=== PATIENT | female | born 1940 | race Caucasian/White ===

== ENCOUNTER 2018-11-09 21:37 | Inpatient (IN) | payer MEDICARE, OTHER, MEDICAID ==
[2018-11-09] MEDS: ALBUTEROL 0.5% (NEB) 2.5 MG/0.5 ML AMP INH (21:48)
[2018-11-09] MEDS: FUROSEMIDE 40 MG INJ IV (21:48)
[2018-11-09] MEDS: IPRATROPIUM (NEB) 0.5 MG/2.5 ML AMP INH (21:48)
[2018-11-09] MEDS: NITROGLYCERIN 50 MG/D5W (PMX) 250 ML IV (21:49)
[2018-11-09 21:56] LABS: ADD MAN DIFF? NO
[2018-11-09 21:59] LABS: ABNORMAL IP MESSAGE 1; BASOPHILS % 0.2 % (0.0-2.0); HEMATOCRIT 36.6 % (37.0-47.0); HEMOGLOBIN 11.9 g/dl (12.0-16.0); LYMPHOCYTES # 2.9 10^3/ul (0.8-2.9); LYMPHOCYTES % 14.7 % (15.0-51.0); MEAN CORPUSCULAR HEMOGLOBIN 29.9 pg (29.0-33.0); MEAN CORPUSCULAR HGB CONC 32.5 g/dl (32.0-37.0); MEAN PLATELET VOLUME 10.5 fl (7.4-10.4); MONOCYTE # 1.8 10^3/ul (0.3-0.9); NEUTROPHIL # 14.7 10^3/ul (1.6-7.5); NEUTROPHILS % 74.6 % (39.0-77.0); PLATELET COUNT 240 10^3/UL (140-415); RED BLOOD COUNT 3.98 10^6/ul (4.20-5.40)
[2018-11-09 21:59] LABS: WHITE BLOOD COUNT 19.8 10^3/ul (4.8-10.8)
[2018-11-09] MEDS ORDERED: AMIODARONE 900 MG in DEXTROSE 5% 482 ML IV (22:00)
[2018-11-09 22:02] LABS: POSITIVE DIFF @See below
[2018-11-09 22:04] LABS: ALANINE AMINOTRANSFERASE 123 IU/L (13-69); ALBUMIN 4.1 g/dl (3.3-4.9); ALKALINE PHOSPHATASE 112 IU/L (42-121); ANION GAP 14 (5-13); ASPARTATE AMINO TRANSFERASE 67 IU/L (15-46); BILIRUBIN,INDIRECT 0.8 mg/dl (0-1.1); BILIRUBIN,TOTAL 0.8 mg/dl (0.2-1.3); BLOOD UREA NITROGEN 23 mg/dl (7-20); CALCIUM 8.9 mg/dl (8.4-10.2); CARBON DIOXIDE 18 mmol/L (21-31); CHLORIDE 102 mmol/L (97-110); GLUCOSE 331 mg/dl (70-220); POTASSIUM 4.4 mmol/L (3.5-5.1); SODIUM 134 mmol/L (135-144); TOTAL PROTEIN 7.5 g/dl (6.1-8.1)
[2018-11-09 22:16] LABS: B-TYPE NATRIURETIC PEPTIDE 4760 PG/ML (0-450); TROPONIN-I < 0.012 ng/ml (0.000-0.120)
[2018-11-09] MEDS: CEFTRIAXONE 1 GM/50 ML (PMX) 50 ML IVPB (22:16)
[2018-11-09 22:22] LABS: PARTIAL THROMBOPLASTIN TIME 25.9 Sec (23.0-35.0); PROTIME 14.3 Sec (11.9-14.9); PT RATIO 1.1
[2018-11-09] MEDS ORDERED: ONDANSETRON 4 MG INJ IV (22:30)
[2018-11-09] MEDS ORDERED: ACETAMINOPHEN 325 MG TAB PO (22:30)
[2018-11-09 22:33] LABS: ADD UMIC YES; UR ASCORBIC ACID NEGATIVE (NEGATIVE); UR BACTERIA FEW /HPF (NONE SEEN); UR BILIRUBIN (Dip) NEGATIVE (NEGATIVE); UR BLOOD (Dip) 1+ mg/dL (NEGATIVE); UR CLARITY SLIGHTLY CLOUDY (CLEAR); UR COLOR YELLOW (YELLOW); UR GLUCOSE (Dip) 3+ mg/dL (NEGATIVE); UR HYALINE CAST FEW /HPF (NONE SEEN); UR KETONES (Dip) NEGATIVE (NEGATIVE); UR LEUKOCYTE ESTERASE (Dip) NEGATIVE Leu/ul (NEGATIVE); UR MUCUS FEW /HPF (NONE SEEN); UR NITRITE (Dip) NEGATIVE (NEGATIVE); UR RBC 1 /HPF (0-5); UR SPECIFIC GRAVITY (Dip) 1.018 (1.003-1.030); UR SQUAMOUS EPITHELIAL CELL FEW /HPF (FEW); UR TOTAL PROTEIN (Dip) 2+ mg/dl (NEGATIVE); UR UROBILINOGEN (Dip) NEGATIVE (NEGATIVE); UR WBC 2 /HPF (0-5)
[2018-11-09] MEDS: AMIODARONE 150MG/D5W BOLUS IV* (22:37)
[2018-11-09 23:08] LABS: Blood Gas IEPAP 15/5; Blood Gas PS 10; MODE MASK - BIPAP; MetHgb Venous 0.5 %; Sample Type Blood venous; Site VENOUS LINE; Venous COHb 0.4 %; Venous Fraction OxyHgb 83.4 %; Venous Oxygen Sat 84.2 mmHG (55.0-75.0); Venous Total Hemglobin 12.6 g/dl
[2018-11-09] MEDS: INSULIN REGULAR, HUMAN 100 UNIT/1 ML 3ML VIAL IV (23:19)
[2018-11-09] MEDS: AZITHROMYCIN 500MG/NS (PMX) 250 ML IV (23:19)
[2018-11-09] MEDS ORDERED: SOD CHLORIDE 0.45% 1,000 ML IV (23:50)
[2018-11-10] MEDS ORDERED: NITROGLYCERIN AEROSOL (4.9 GM) SL
[2018-11-10] MEDS ORDERED: PIPER-TAZO 3.375 GM IV (PMX) 100 ML IVPB
[2018-11-10 00:07] LABS: LACTIC ACID 2.8 mmol/L (0.5-2.0)
[2018-11-10] MEDS ORDERED: VANCOMYCIN IV PER PHARMACY XX (00:30)
[2018-11-10 00:39] LABS: DIGOXIN < 0.4 ng/ml (1.0-2.0)
[2018-11-10 00:48] LABS: TROPONIN-I < 0.012 ng/ml (0.000-0.120)
[2018-11-10 00:50] LABS: IRON 34 ug/dl (35-150)
[2018-11-10 00:51] LABS: MAGNESIUM 1.5 mg/dl (1.7-2.5)
[2018-11-10 01:00] LABS: % IRON SATURATION 14 % SAT (22-52); TOTAL IRON BINDING CAPACITY 236 ug/dl (241-421)
[2018-11-10] MEDS ORDERED: NITROGLYCERIN (SL) 0.4 MG TAB SL (01:00)
[2018-11-10] MEDS: PIPER-TAZO 3.375 GM IV (PMX) 100 ML IVPB (01:47)
[2018-11-10 01:57] LABS: ANION GAP 9 (5-13); BLOOD UREA NITROGEN 23 mg/dl (7-20); CALCIUM 8.4 mg/dl (8.4-10.2); CARBON DIOXIDE 24 mmol/L (21-31); CHLORIDE 100 mmol/L (97-110); CREATININE 0.96 mg/dl (0.44-1.00); GLUCOSE 250 mg/dl (70-220); POTASSIUM 3.6 mmol/L (3.5-5.1); SODIUM 133 mmol/L (135-144)
[2018-11-10 02:00] LABS: LACTIC ACID 2.1 mmol/L (0.5-2.0)
[2018-11-10 04:23] LABS: AADO2 Arterial 620.3 mmHg (7.0-24.0); Allen Test ACCEPTAB; Arterial Base Excess -4.8 mmol/L (-3.0-3); Arterial Blood Gas Oxygen Sat 92.1 mmHG (95.0-100.0); Arterial COHb 0.3 % (0.0-3.0); Arterial Fraction of Oxyhgb 91.5 % (93.0-99.0); Arterial HCO3 18.8 mmol/L (22.0-26.0); Arterial MetHb 0.4 % (0.0-1.5); Arterial pCO2 30.3 mmhg (35-45); MODE MASK - NRB; Site Right Radial
[2018-11-10] MEDS: VANCOMYCIN 1.5 GM/NS 250 ML 250 ML IVPB (04:49)
[2018-11-10] MEDS: PIPER-TAZO 2.25 GM/NS 50 ML IVPB ×3 (07:47→21:21)
[2018-11-10] MEDS: ALBUTEROL/IPRATROPIUM (NEB) 3 ML AMP HHN ×3 (08:12→20:11)
[2018-11-10] MEDS: POTASSIUM CHLORIDE 100 ML IVPB ×2 (08:20→10:04)
[2018-11-10] MEDS: FUROSEMIDE 40 MG INJ IV ×2 (08:21→17:40)
[2018-11-10] MEDS: MAGNESIUM SULFATE 4 GM/100 ML 100 ML IVPB (08:32)
[2018-11-10] MEDS ORDERED: DIGOXIN 0.25 MG TAB PO ×2 (09:00)
[2018-11-10] MEDS ORDERED: LISINOPRIL 10 MG TAB PO (09:00)
[2018-11-10] MEDS: DIPHENHYDRAMINE 50 MG CAP PO ×5 (09:00→21:26)
[2018-11-10] MEDS ORDERED: AMIODARONE 900 MG in DEXTROSE 5% 482 ML IV (09:00)
[2018-11-10] MEDS ORDERED: VANCOMYCIN 1 GM (PMX) 250 ML IVPB (09:00)
[2018-11-10] MEDS ORDERED: MAGNESIUM SULFATE 2 GM/50 ML 50 ML IVPB (09:00)
[2018-11-10] MEDS ORDERED: ASPIRIN (EC) 325 MG TAB PO (09:00)
[2018-11-10] MEDS: LISINOPRIL 20 MG TAB PO (10:04)
[2018-11-10] MEDS: ASPIRIN (EC) 325 MG TAB PO (10:04)
[2018-11-10] MEDS: METOPROLOL 100 MG TAB PO (10:04)
[2018-11-10 11:25] LABS: PROCALCITONIN 1.56 ng/mL (0.00-0.10)
[2018-11-10] MEDS: SOD FERRIC GLUC COMPLX 125 MG in SOD CHLORIDE 0.9% 100 ML IVPB (13:45)
[2018-11-10] MEDS: AMIODARONE 200 ML IV ×2 (13:54→19:24)
[2018-11-10] MEDS: POTASSIUM CHLORIDE (SR) 8 MEQ CAP PO (15:08)
[2018-11-10] MEDS ORDERED: INSULIN LISPRO 100 UNIT/ML VIAL SC (21:00)
[2018-11-10] MEDS: ATORVASTATIN 20 MG TAB PO (21:26)
[2018-11-10] MEDS: INSULIN ASPART [NOVOLOG] 3 ML PEN SC (21:38)
[2018-11-11] MEDS: AMIODARONE 200 ML IV ×5 (04:51→21:22)
[2018-11-11] MEDS: VANCOMYCIN 1 GM 250 ML IVPB (04:53)
[2018-11-11 05:47] LABS: ADD MAN DIFF? NO
[2018-11-11 05:49] LABS: WHITE BLOOD COUNT 12.6 10^3/ul (4.8-10.8)
[2018-11-11 05:49] LABS: BASOPHILS % 0.1 % (0.0-2.0); HEMATOCRIT 29.8 % (37.0-47.0); LYMPHOCYTES # 0.8 10^3/ul (0.8-2.9); LYMPHOCYTES % 6.6 % (15.0-51.0); MEAN CORPUSCULAR HGB CONC 33.6 g/dl (32.0-37.0); MEAN CORPUSCULAR VOLUME 89.5 fl (82.0-101.0); MEAN PLATELET VOLUME 10.2 fl (7.4-10.4); MONOCYTE # 1.3 10^3/ul (0.3-0.9); MONOCYTES % 10.1 % (0.0-11.0); NEUTROPHIL # 10.4 10^3/ul (1.6-7.5); NEUTROPHILS % 82.3 % (39.0-77.0); PLATELET COUNT 151 10^3/UL (140-415); RED BLOOD COUNT 3.33 10^6/ul (4.20-5.40); RED CELL DISTRIBUTION WIDTH 14.3 % (11.5-14.5)
[2018-11-11] MEDS: DILTIAZEM 25 MG INJ IV ×2 (05:53→06:01)
[2018-11-11] MEDS ORDERED: DILTIAZEM 25 MG INJ IV ×2 (06:00)
[2018-11-11] MEDS: PIPER-TAZO 2.25 GM/NS 50 ML IVPB ×3 (06:02→22:42)
[2018-11-11 06:53] LABS: ALANINE AMINOTRANSFERASE 75 IU/L (13-69); ALBUMIN 3.3 g/dl (3.3-4.9); ALKALINE PHOSPHATASE 90 IU/L (42-121); ANION GAP 7 (5-13); ASPARTATE AMINO TRANSFERASE 28 IU/L (15-46); BILIRUBIN,INDIRECT 0.8 mg/dl (0-1.1); BILIRUBIN,TOTAL 0.8 mg/dl (0.2-1.3); BLOOD UREA NITROGEN 19 mg/dl (7-20); CALCIUM 8.4 mg/dl (8.4-10.2); CARBON DIOXIDE 28 mmol/L (21-31); CHLORIDE 102 mmol/L (97-110); CREATININE 0.86 mg/dl (0.44-1.00); GLUCOSE 266 mg/dl (70-220); MAGNESIUM 2.2 mg/dl (1.7-2.5); POTASSIUM 3.2 mmol/L (3.5-5.1); SODIUM 137 mmol/L (135-144); TOTAL PROTEIN 6.6 g/dl (6.1-8.1)
[2018-11-11] MEDS: FUROSEMIDE 40 MG INJ IV ×3 (07:00→17:34)
[2018-11-11] MEDS ORDERED: DEXTROSE 50% 50 ML SYRINGE IV ×2 (08:30)
[2018-11-11] MEDS ORDERED: GLUCOSE GEL 15 GRAM TUBE BUCCAL (08:30)
[2018-11-11] MEDS ORDERED: GLUCAGON 1 MG INJ IM (08:30)
[2018-11-11] MEDS ORDERED: GLUCOSE GEL 15 GRAM TUBE PO ×2 (08:30)
[2018-11-11] MEDS: HEPARIN (10 UNITS/ML) 5ML SYG IV (09:00)
[2018-11-11] MEDS ORDERED: POTASSIUM CHLORIDE (SR) 20 MEQ TAB PO (09:00)
[2018-11-11 09:03] LABS: Allen Test ACCEPTAB; Arterial Base Excess 0.3 mmol/L (-3.0-3); Arterial Blood Gas Oxygen Sat 93.5 mmHG (95.0-100.0); Arterial COHb 0.3 % (0.0-3.0); Arterial Fraction of Oxyhgb 92.9 % (93.0-99.0); Arterial HCO3 23.3 mmol/L (22.0-26.0); Arterial MetHb 0.3 % (0.0-1.5); Arterial pCO2 32.2 mmhg (35-45); Blood Gas IEPAP 15/5; Blood Gas PS 10; MODE MASK - BIPAP; Site Right Radial
[2018-11-11] MEDS: ASPIRIN (EC) 325 MG TAB PO (09:06)
[2018-11-11] MEDS: DIPHENHYDRAMINE 50 MG CAP PO ×4 (09:06→20:59)
[2018-11-11] MEDS: METOPROLOL 100 MG TAB PO (09:07)
[2018-11-11] MEDS: ALBUTEROL/IPRATROPIUM (NEB) 3 ML AMP HHN ×3 (09:34→21:40)
[2018-11-11] MEDS ORDERED: INSULIN ASPART [NOVOLOG] 3 ML PEN SC (11:30)
[2018-11-11] MEDS: POTASSIUM CHLORIDE 50 ML IVPB ×2 (11:52→13:13)
[2018-11-11] MEDS: SOD FERRIC GLUC COMPLX 125 MG in SOD CHLORIDE 0.9% 100 ML IVPB (12:22)
[2018-11-11] MEDS: INSULIN ASPART [NOVOLOG] 3 ML PEN SC ×3 (13:11→21:16)
[2018-11-11] MEDS: ACETAMINOPHEN 1000MG/100ML IV 100 ML IVPB (20:11)
[2018-11-11] MEDS: METOPROLOL 5 MG INJ IV (20:11)
[2018-11-11] MEDS: POTASSIUM CHLORIDE 100 ML IVPB (20:59)
[2018-11-11] MEDS: ATORVASTATIN 20 MG TAB PO (20:59)
[2018-11-11] MEDS ORDERED: DIGOXIN 0.25 MG TAB PO (21:00)
[2018-11-11] MEDS: INSULIN GLARGINE [LANTus] (100 UNITS/ML) SYG SC (21:16)
[2018-11-11] MEDS ORDERED: DIGOXIN 500 MCG INJ IV (22:00)
[2018-11-11] MEDS: DIGOXIN 500 MCG INJ IV (22:11)
[2018-11-12] MEDS: INSULIN ASPART [NOVOLOG] 3 ML PEN SC ×6 (00:47→20:42)
[2018-11-12] MEDS: AMIODARONE 200 ML IV ×3 (03:20→13:07)
[2018-11-12] MEDS: DIGOXIN 500 MCG INJ IV ×2 (03:44→09:55)
[2018-11-12] MEDS ORDERED: DIGOXIN 500 MCG INJ IV (04:00)
[2018-11-12] MEDS: VANCOMYCIN 1 GM 250 ML IVPB (04:29)
[2018-11-12 04:34] LABS: ADD MAN DIFF? NO
[2018-11-12 04:37] LABS: WHITE BLOOD COUNT 11.5 10^3/ul (4.8-10.8)
[2018-11-12 04:37] LABS: BASOPHILS % 0.1 % (0.0-2.0); HEMATOCRIT 30.4 % (37.0-47.0); HEMOGLOBIN 9.7 g/dl (12.0-16.0); LYMPHOCYTES # 0.8 10^3/ul (0.8-2.9); LYMPHOCYTES % 7.2 % (15.0-51.0); MEAN CORPUSCULAR HEMOGLOBIN 29.4 pg (29.0-33.0); MEAN CORPUSCULAR HGB CONC 31.9 g/dl (32.0-37.0); MEAN CORPUSCULAR VOLUME 92.1 fl (82.0-101.0); MEAN PLATELET VOLUME 10.7 fl (7.4-10.4); MONOCYTE # 0.9 10^3/ul (0.3-0.9); MONOCYTES % 8.1 % (0.0-11.0); NEUTROPHIL # 9.7 10^3/ul (1.6-7.5); NEUTROPHILS % 84.1 % (39.0-77.0); PLATELET COUNT 151 10^3/UL (140-415); RED CELL DISTRIBUTION WIDTH 14.4 % (11.5-14.5)
[2018-11-12 04:59] LABS: ALANINE AMINOTRANSFERASE 57 IU/L (13-69); ALBUMIN 3.4 g/dl (3.3-4.9); ALBUMIN/GLOBULIN RATIO 1.06; ALKALINE PHOSPHATASE 79 IU/L (42-121); ANION GAP 6 (5-13); ASPARTATE AMINO TRANSFERASE 24 IU/L (15-46); BILIRUBIN,INDIRECT 0.8 mg/dl (0-1.1); BILIRUBIN,TOTAL 0.8 mg/dl (0.2-1.3); BLOOD UREA NITROGEN 18 mg/dl (7-20); CALCIUM 8.5 mg/dl (8.4-10.2); CARBON DIOXIDE 32 mmol/L (21-31); CHLORIDE 102 mmol/L (97-110); CREATININE 0.69 mg/dl (0.44-1.00); GLUCOSE 193 mg/dl (70-220); MAGNESIUM 2.2 mg/dl (1.7-2.5); PHOSPHORUS 2.2 mg/dl (2.5-4.9); POTASSIUM 3.2 mmol/L (3.5-5.1); SODIUM 140 mmol/L (135-144); TOTAL PROTEIN 6.6 g/dl (6.1-8.1)
[2018-11-12] MEDS: FUROSEMIDE 40 MG INJ IV ×2 (05:31→17:36)
[2018-11-12] MEDS: PIPER-TAZO 2.25 GM/NS 50 ML IVPB ×3 (06:44→21:37)
[2018-11-12] MEDS: POTASSIUM CHLORIDE 100 ML IVPB ×4 (07:55→18:39)
[2018-11-12] MEDS: ALBUTEROL/IPRATROPIUM (NEB) 3 ML AMP HHN ×3 (08:06→21:30)
[2018-11-12] MEDS: ASPIRIN (EC) 325 MG TAB PO (08:33)
[2018-11-12] MEDS: DIPHENHYDRAMINE 50 MG CAP PO ×4 (08:33→20:32)
[2018-11-12] MEDS: METOPROLOL 100 MG TAB PO (08:37)
[2018-11-12] MEDS ORDERED: POTASSIUM CHLORIDE 100 ML IVPB (09:30)
[2018-11-12] MEDS: SOD FERRIC GLUC COMPLX 125 MG in SOD CHLORIDE 0.9% 100 ML IVPB (13:05)
[2018-11-12 15:54] LABS: ANION GAP 7 (5-13); BLOOD UREA NITROGEN 15 mg/dl (7-20); CALCIUM 8.6 mg/dl (8.4-10.2); CARBON DIOXIDE 32 mmol/L (21-31); CHLORIDE 101 mmol/L (97-110); CREATININE 0.73 mg/dl (0.44-1.00); GLUCOSE 176 mg/dl (70-220); POTASSIUM 3.6 mmol/L (3.5-5.1); SODIUM 140 mmol/L (135-144)
[2018-11-12] MEDS: ACETAMINOPHEN 650 MG SUPP PR (15:59)
[2018-11-12] MEDS: VANCOMYCIN 1 GM (PMX) 250 ML IVPB (16:20)
[2018-11-12] MEDS: AMIODARONE 900 MG in DEXTROSE 5% 482 ML IV (17:46)
[2018-11-12] MEDS: METOPROLOL 50 MG TAB PO ×2 (18:43→23:42)
[2018-11-12] MEDS: ATORVASTATIN 20 MG TAB PO (20:32)
[2018-11-12] MEDS: POTASSIUM PHOSPHATE 10 MEQ in SOD CHLORIDE 0.9% 250 ML IVPB (20:32)
[2018-11-12] MEDS: INSULIN GLARGINE [LANTus] (100 UNITS/ML) SYG SC (20:42)
[2018-11-13] MEDS ORDERED: ONDANSETRON 4 MG INJ IV
[2018-11-13] MEDS: ACETAMINOPHEN 650 MG SUPP PR
[2018-11-13] MEDS: GUAIFENESIN/CODEINE 5ML CUP PO
[2018-11-13] MEDS: INSULIN ASPART [NOVOLOG] 3 ML PEN SC ×6 (00:51→20:03)
[2018-11-13] MEDS: ONDANSETRON IV (01:39)
[2018-11-13] MEDS: SOD CHLORIDE 0.9% IV (01:39)
[2018-11-13 05:15] LABS: ADD MAN DIFF? NO
[2018-11-13 05:18] LABS: WHITE BLOOD COUNT 10.8 10^3/ul (4.8-10.8)
[2018-11-13 05:18] LABS: BASOPHILS % 0.1 % (0.0-2.0); EOSINOPHILS % 0.2 % (0.0-7.0); HEMATOCRIT 29.9 % (37.0-47.0); HEMOGLOBIN 9.6 g/dl (12.0-16.0); MEAN CORPUSCULAR HEMOGLOBIN 30.1 pg (29.0-33.0); MEAN CORPUSCULAR HGB CONC 32.1 g/dl (32.0-37.0); MEAN CORPUSCULAR VOLUME 93.7 fl (82.0-101.0); MEAN PLATELET VOLUME 10.9 fl (7.4-10.4); MONOCYTE # 0.8 10^3/ul (0.3-0.9); MONOCYTES % 7.4 % (0.0-11.0); NEUTROPHILS % 82.7 % (39.0-77.0); PLATELET COUNT 174 10^3/UL (140-415); RED BLOOD COUNT 3.19 10^6/ul (4.20-5.40); RED CELL DISTRIBUTION WIDTH 14.1 % (11.5-14.5)
[2018-11-13 05:21] LABS: AADO2 Arterial 335.8 mmHg (7.0-24.0); Allen Test ACCEPTAB; Arterial Base Excess 3.3 mmol/L (-3.0-3); Arterial HCO3 27.5 mmol/L (22.0-26.0); Arterial pCO2 40.3 mmhg (35-45); MODE MASK - SIMPLE; Site Left Radial
[2018-11-13] MEDS: FUROSEMIDE 40 MG INJ IV ×2 (05:27→17:47)
[2018-11-13] MEDS: METOPROLOL 50 MG TAB PO ×4 (05:28→23:59)
[2018-11-13] MEDS: PIPER-TAZO 2.25 GM/NS 50 ML IVPB ×4 (05:28→23:59)
[2018-11-13 05:39] LABS: ALANINE AMINOTRANSFERASE 45 IU/L (13-69); ALBUMIN/GLOBULIN RATIO 0.83; ALKALINE PHOSPHATASE 101 IU/L (42-121); ANION GAP 6 (5-13); ASPARTATE AMINO TRANSFERASE 29 IU/L (15-46); BLOOD UREA NITROGEN 19 mg/dl (7-20); CALCIUM 8.2 mg/dl (8.4-10.2); CARBON DIOXIDE 33 mmol/L (21-31); CHLORIDE 100 mmol/L (97-110); CREATININE 0.64 mg/dl (0.44-1.00); GLUCOSE 199 mg/dl (70-220); IRON 34 ug/dl (35-150); PHOSPHORUS 2.6 mg/dl (2.5-4.9); POTASSIUM 3.6 mmol/L (3.5-5.1); SODIUM 139 mmol/L (135-144); TOTAL PROTEIN 6.6 g/dl (6.1-8.1)
[2018-11-13 05:48] LABS: % IRON SATURATION 20 % SAT (22-52); TOTAL IRON BINDING CAPACITY 170 ug/dl (241-421)
[2018-11-13] MEDS: AMIODARONE 900 MG in DEXTROSE 5% 482 ML IV (08:42)
[2018-11-13] MEDS: DIPHENHYDRAMINE 50 MG CAP PO (08:51)
[2018-11-13] MEDS: ASPIRIN (EC) 325 MG TAB PO (09:13)
[2018-11-13] MEDS: ALBUTEROL/IPRATROPIUM (NEB) 3 ML AMP HHN ×3 (09:44→20:16)
[2018-11-13] MEDS: POTASSIUM CHLORIDE 50 ML IVPB (10:29)
[2018-11-13] MEDS: SOD FERRIC GLUC COMPLX 125 MG in SOD CHLORIDE 0.9% 100 ML IVPB (12:40)
[2018-11-13] MEDS: DIGOXIN 0.125 MG TAB PO (12:40)
[2018-11-13] MEDS: FAMOTIDINE 20 MG TAB PO (12:40)
[2018-11-13] MEDS: VANCOMYCIN 1 GM (PMX) 250 ML IVPB (16:08)
[2018-11-13] MEDS: ACETAMINOPHEN 325 MG TAB PO (17:47)
[2018-11-13] MEDS: ATORVASTATIN 20 MG TAB PO (20:00)
[2018-11-13] MEDS: INSULIN GLARGINE [LANTus] (100 UNITS/ML) SYG SC (20:01)
[2018-11-13] MEDS: APIXABAN 5 MG TABLET PO (20:04)
[2018-11-14] MEDS: ACCU-CHEK XX ×2 (01:40→21:01)
[2018-11-14] MEDS: ACETAMINOPHEN 325 MG TAB PO ×2 (01:40→11:26)
[2018-11-14] MEDS: VANCOMYCIN 1 GM (PMX) 250 ML IVPB ×2 (03:11→17:39)
[2018-11-14] MEDS: FUROSEMIDE 40 MG INJ IV ×2 (05:32→17:39)
[2018-11-14] MEDS: PIPER-TAZO 2.25 GM/NS 50 ML IVPB ×3 (05:32→17:39)
[2018-11-14 05:43] LABS: ADD MAN DIFF? NO
[2018-11-14 05:58] LABS: WHITE BLOOD COUNT 9.4 10^3/ul (4.8-10.8)
[2018-11-14 05:58] LABS: BASOPHILS % 0.3 % (0.0-2.0); EOSINOPHILS # 0.2 10^3/ul (0.0-0.5); EOSINOPHILS % 1.6 % (0.0-7.0); HEMATOCRIT 31.3 % (37.0-47.0); HEMOGLOBIN 10.1 g/dl (12.0-16.0); LYMPHOCYTES # 0.8 10^3/ul (0.8-2.9); LYMPHOCYTES % 8.9 % (15.0-51.0); MEAN CORPUSCULAR HEMOGLOBIN 29.8 pg (29.0-33.0); MEAN CORPUSCULAR HGB CONC 32.3 g/dl (32.0-37.0); MEAN CORPUSCULAR VOLUME 92.3 fl (82.0-101.0); MEAN PLATELET VOLUME 10.4 fl (7.4-10.4); MONOCYTE # 0.8 10^3/ul (0.3-0.9); MONOCYTES % 8.8 % (0.0-11.0); NEUTROPHIL # 7.5 10^3/ul (1.6-7.5); NEUTROPHILS % 79.7 % (39.0-77.0); PLATELET COUNT 174 10^3/UL (140-415); RED BLOOD COUNT 3.39 10^6/ul (4.20-5.40); RED CELL DISTRIBUTION WIDTH 14.1 % (11.5-14.5)
[2018-11-14 06:05] LABS: DIGOXIN 0.7 ng/ml (1.0-2.0)
[2018-11-14] MEDS: METOPROLOL 50 MG TAB PO ×3 (06:05→17:40)
[2018-11-14 06:25] LABS: ALANINE AMINOTRANSFERASE 38 IU/L (13-69); ALBUMIN 2.7 g/dl (3.3-4.9); ALBUMIN/GLOBULIN RATIO 0.77; ALKALINE PHOSPHATASE 128 IU/L (42-121); ANION GAP 3 (5-13); ASPARTATE AMINO TRANSFERASE 26 IU/L (15-46); BILIRUBIN,INDIRECT 0.8 mg/dl (0-1.1); BILIRUBIN,TOTAL 0.8 mg/dl (0.2-1.3); BLOOD UREA NITROGEN 21 mg/dl (7-20); CALCIUM 8.8 mg/dl (8.4-10.2); CARBON DIOXIDE 37 mmol/L (21-31); CHLORIDE 100 mmol/L (97-110); CREATININE 0.71 mg/dl (0.44-1.00); GLUCOSE 115 mg/dl (70-220); SODIUM 140 mmol/L (135-144); TOTAL PROTEIN 6.2 g/dl (6.1-8.1)
[2018-11-14] MEDS: INSULIN ASPART [NOVOLOG] 3 ML PEN SC ×5 (07:35→20:36)
[2018-11-14] MEDS: ALBUTEROL/IPRATROPIUM (NEB) 3 ML AMP HHN ×3 (08:00→21:26)
[2018-11-14] MEDS: POTASSIUM CHLORIDE (SR) 20 MEQ TAB PO (08:30)
[2018-11-14] MEDS: METHYLPREDNISOLONE 40 MG INJ IV ×3 (08:30→17:39)
[2018-11-14] MEDS: ASPIRIN (EC) 325 MG TAB PO (09:00)
[2018-11-14 09:18] LABS: PROCALCITONIN 0.83 ng/mL (0.00-0.10)
[2018-11-14] MEDS: APIXABAN 5 MG TABLET PO ×2 (10:22→20:07)
[2018-11-14] MEDS: FAMOTIDINE 20 MG TAB PO (10:22)
[2018-11-14] MEDS ORDERED: ONDANSETRON 4 MG INJ IV (10:30)
[2018-11-14] MEDS: ALTEPLASE (CATHFLO) 2 MG INJ CATHETER (10:35)
[2018-11-14] MEDS: DIGOXIN 0.125 MG TAB PO (12:18)
[2018-11-14 12:22] LABS: POTASSIUM 3.8 mmol/L (3.5-5.1)
[2018-11-14] MEDS: SOD FERRIC GLUC COMPLX 125 MG in SOD CHLORIDE 0.9% 100 ML IVPB (13:59)
[2018-11-14] MEDS: POTASSIUM CHLORIDE (SR) 10 MEQ TAB PO (18:40)
[2018-11-14] MEDS: ATORVASTATIN 20 MG TAB PO (20:07)
[2018-11-14] MEDS: INSULIN GLARGINE [LANTus] (100 UNITS/ML) SYG SC (20:09)
[2018-11-15] MEDS: METHYLPREDNISOLONE 40 MG INJ IV ×4 (00:25→17:47)
[2018-11-15] MEDS: METOPROLOL 50 MG TAB PO ×4 (00:25→17:48)
[2018-11-15] MEDS: PIPER-TAZO 2.25 GM/NS 50 ML IVPB ×4 (00:25→17:46)
[2018-11-15] MEDS: ACETAMINOPHEN 325 MG TAB PO (01:56)
[2018-11-15] MEDS: ACCU-CHEK XX ×11 (01:58→23:00)
[2018-11-15] MEDS: VANCOMYCIN 1 GM (PMX) 250 ML IVPB ×2 (03:01→17:47)
[2018-11-15 04:59] LABS: ADD MAN DIFF? NO
[2018-11-15 05:16] LABS: ABNORMAL IP MESSAGE 1; BASOPHILS % 0.1 % (0.0-2.0); HEMATOCRIT 32.1 % (37.0-47.0); HEMOGLOBIN 10.3 g/dl (12.0-16.0); LYMPHOCYTES # 0.4 10^3/ul (0.8-2.9); LYMPHOCYTES % 5.7 % (15.0-51.0); MEAN CORPUSCULAR HEMOGLOBIN 29.4 pg (29.0-33.0); MEAN CORPUSCULAR HGB CONC 32.1 g/dl (32.0-37.0); MEAN CORPUSCULAR VOLUME 91.7 fl (82.0-101.0); MEAN PLATELET VOLUME 10.6 fl (7.4-10.4); MONOCYTE # 0.2 10^3/ul (0.3-0.9); MONOCYTES % 2.8 % (0.0-11.0); NEUTROPHIL # 6.7 10^3/ul (1.6-7.5); NEUTROPHILS % 90.9 % (39.0-77.0); PLATELET COUNT 186 10^3/UL (140-415); RED CELL DISTRIBUTION WIDTH 13.7 % (11.5-14.5)
[2018-11-15 05:16] LABS: WHITE BLOOD COUNT 7.4 10^3/ul (4.8-10.8)
[2018-11-15] MEDS: FUROSEMIDE 40 MG INJ IV ×2 (05:19→17:47)
[2018-11-15 05:52] LABS: POSITIVE DIFF @See below
[2018-11-15 06:55] LABS: ALANINE AMINOTRANSFERASE 40 IU/L (13-69); ALBUMIN 3.1 g/dl (3.3-4.9); ALBUMIN/GLOBULIN RATIO 0.93; ALKALINE PHOSPHATASE 128 IU/L (42-121); ANION GAP 8 (5-13); ASPARTATE AMINO TRANSFERASE 25 IU/L (15-46); BILIRUBIN,INDIRECT 0.7 mg/dl (0-1.1); BILIRUBIN,TOTAL 0.7 mg/dl (0.2-1.3); BLOOD UREA NITROGEN 30 mg/dl (7-20); CALCIUM 9.3 mg/dl (8.4-10.2); CARBON DIOXIDE 35 mmol/L (21-31); CHLORIDE 97 mmol/L (97-110); CREATININE 0.71 mg/dl (0.44-1.00); PHOSPHORUS 4.1 mg/dl (2.5-4.9); POTASSIUM 3.4 mmol/L (3.5-5.1); SODIUM 140 mmol/L (135-144); TOTAL PROTEIN 6.4 g/dl (6.1-8.1)
[2018-11-15 07:05] LABS: GLUCOSE 286 mg/dl (70-220)
[2018-11-15 07:43] LABS: PROCALCITONIN 0.59 ng/mL (0.00-0.10)
[2018-11-15] MEDS: ALBUTEROL/IPRATROPIUM (NEB) 3 ML AMP HHN ×3 (08:23→20:25)
[2018-11-15] MEDS: INSULIN ASPART [NOVOLOG] 3 ML PEN SC ×3 (08:53→12:53)
[2018-11-15] MEDS: APIXABAN 5 MG TABLET PO ×2 (09:45→21:38)
[2018-11-15] MEDS: FAMOTIDINE 20 MG TAB PO (09:45)
[2018-11-15] MEDS: POTASSIUM CHLORIDE (SR) 10 MEQ TAB PO (09:48)
[2018-11-15] MEDS: INSULIN GLARGINE [LANTus] (100 UNITS/ML) SYG SC (10:06)
[2018-11-15] MEDS: DIGOXIN 0.125 MG TAB PO (12:31)
[2018-11-15] MEDS ORDERED: DEXTROSE 50% 50 ML SYRINGE IV ×2 (15:00)
[2018-11-15] MEDS ORDERED: INSULIN HUMAN REGULAR 100 UNIT in SOD CHLORIDE 0.9% 99 ML IV (15:00)
[2018-11-15] MEDS: INSULIN HUMAN REGULAR 100 UNIT in SOD CHLORIDE 0.9% 99 ML IV (16:47)
[2018-11-15 16:48] LABS: POTASSIUM 3.6 mmol/L (3.5-5.1)
[2018-11-15] MEDS ORDERED: INSULIN GLARGINE [LANTus] (100 UNITS/ML) SYG SC (20:00)
[2018-11-15] MEDS: ATORVASTATIN 20 MG TAB PO (21:38)
[2018-11-16] MEDS: ACCU-CHEK XX ×24 (01:00→23:32)
[2018-11-16] MEDS: METHYLPREDNISOLONE 40 MG INJ IV ×4 (01:08→21:01)
[2018-11-16] MEDS: PIPER-TAZO 2.25 GM/NS 50 ML IVPB ×4 (01:08→17:33)
[2018-11-16] MEDS: METOPROLOL 50 MG TAB PO ×5 (01:09→22:57)
[2018-11-16] MEDS: INSULIN HUMAN REGULAR 100 UNIT in SOD CHLORIDE 0.9% 99 ML IV (03:30)
[2018-11-16] MEDS: FUROSEMIDE 40 MG INJ IV ×2 (05:41→17:34)
[2018-11-16 06:29] LABS: WHITE BLOOD COUNT 13.4 10^3/ul (4.8-10.8)
[2018-11-16 06:29] LABS: HEMATOCRIT 32.9 % (37.0-47.0); HEMOGLOBIN 10.7 g/dl (12.0-16.0); MEAN CORPUSCULAR HEMOGLOBIN 29.8 pg (29.0-33.0); MEAN CORPUSCULAR HGB CONC 32.5 g/dl (32.0-37.0); MEAN CORPUSCULAR VOLUME 91.6 fl (82.0-101.0); MEAN PLATELET VOLUME 10.6 fl (7.4-10.4); PLATELET COUNT 219 10^3/UL (140-415); RED BLOOD COUNT 3.59 10^6/ul (4.20-5.40); RED CELL DISTRIBUTION WIDTH 13.5 % (11.5-14.5)
[2018-11-16 06:50] LABS: POSITIVE DIFF @See below
[2018-11-16 06:51] LABS: ADD MAN DIFF? YES
[2018-11-16 06:53] LABS: B-TYPE NATRIURETIC PEPTIDE 3010 PG/ML (0-450)
[2018-11-16] MEDS ORDERED: INSULIN GLARGINE [LANTus] (100 UNITS/ML) SYG SC (07:05)
[2018-11-16] MEDS: ALBUTEROL/IPRATROPIUM (NEB) 3 ML AMP HHN ×3 (08:23→20:15)
[2018-11-16 08:27] LABS: BAND NEUTROPHILS #M 0.1 10^3/ul (0.0-0.6); BAND NEUTROPHILS % (M) 1 % (0-4); LYMPHOCYTES #M 0.6 10^3/ul (0.8-2.9); LYMPHOCYTES % (M) 5 % (15-51); MONOCYTE #M 0.2 10^3/ul (0.3-0.9); MONOCYTES % (M) 2 % (0-11); PLASMA CELLS #M 0.1 10^3/ul (0.0-0.0); PLASMAC%(M) 1 % (0); PLATELET ESTIMATE NORMAL; POLYCHROMASIA 1+ (0-0); SEG NEUT #M 12.2 10^3/ul (1.6-7.5); SEGMENTED NEUTROPHILS (M) % 91 % (39-77); SMUDGE%M 7 % (0-0)
[2018-11-16 09:14] LABS: PROCALCITONIN 0.37 ng/mL (0.00-0.10)
[2018-11-16] MEDS: FAMOTIDINE 20 MG TAB PO (09:18)
[2018-11-16] MEDS: APIXABAN 5 MG TABLET PO ×2 (09:18→21:02)
[2018-11-16 10:53] LABS: ANION GAP 7 (5-13); BLOOD UREA NITROGEN 33 mg/dl (7-20); CARBON DIOXIDE 36 mmol/L (21-31); CHLORIDE 98 mmol/L (97-110); CREATININE 0.56 mg/dl (0.44-1.00); GLUCOSE 98 mg/dl (70-220); POTASSIUM 3.4 mmol/L (3.5-5.1); SODIUM 141 mmol/L (135-144)
[2018-11-16] MEDS: POTASSIUM CHLORIDE (SR) 20 MEQ TAB PO ×2 (11:29→21:02)
[2018-11-16] MEDS: DIGOXIN 0.125 MG TAB PO (13:52)
[2018-11-16] MEDS: ATORVASTATIN 20 MG TAB PO (21:02)
[2018-11-17] MEDS: ACCU-CHEK XX ×25 (00:27→23:43)
[2018-11-17 06:01] LABS: HEMATOCRIT 34.6 % (37.0-47.0); HEMOGLOBIN 11.3 g/dl (12.0-16.0); MEAN CORPUSCULAR HEMOGLOBIN 29.6 pg (29.0-33.0); MEAN CORPUSCULAR HGB CONC 32.7 g/dl (32.0-37.0); MEAN CORPUSCULAR VOLUME 90.6 fl (82.0-101.0); MEAN PLATELET VOLUME 10.8 fl (7.4-10.4); PLATELET COUNT 236 10^3/UL (140-415); RED BLOOD COUNT 3.82 10^6/ul (4.20-5.40); RED CELL DISTRIBUTION WIDTH 13.7 % (11.5-14.5)
[2018-11-17 06:01] LABS: WHITE BLOOD COUNT 11.8 10^3/ul (4.8-10.8)
[2018-11-17 06:05] LABS: IRON 64 ug/dl (35-150)
[2018-11-17] MEDS: FUROSEMIDE 40 MG INJ IV (06:07)
[2018-11-17] MEDS: METOPROLOL 50 MG TAB PO (06:07)
[2018-11-17 06:14] LABS: % IRON SATURATION 29 % SAT (22-52); TOTAL IRON BINDING CAPACITY 223 ug/dl (241-421)
[2018-11-17 06:21] LABS: B-TYPE NATRIURETIC PEPTIDE 2610 PG/ML (0-450)
[2018-11-17 06:24] LABS: ADD MAN DIFF? YES; POSITIVE DIFF @See below
[2018-11-17 06:35] LABS: MAGNESIUM 2.2 mg/dl (1.7-2.5)
[2018-11-17 06:54] LABS: ANION GAP 6 (5-13); BLOOD UREA NITROGEN 31 mg/dl (7-20); CALCIUM 8.9 mg/dl (8.4-10.2); CARBON DIOXIDE 39 mmol/L (21-31); CHLORIDE 94 mmol/L (97-110); CREATININE 0.63 mg/dl (0.44-1.00); GLUCOSE 116 mg/dl (70-220); POTASSIUM 3.1 mmol/L (3.5-5.1); SODIUM 139 mmol/L (135-144)
[2018-11-17] MEDS: INSULIN HUMAN REGULAR 100 UNIT in SOD CHLORIDE 0.9% 99 ML IV ×2 (08:06→23:34)
[2018-11-17 08:19] LABS: AADO2 Arterial 125.8 mmHg (7.0-24.0); Allen Test ACCEPTAB; Arterial Base Excess 15.1 mmol/L (-3.0-3); Arterial COHb 0.2 % (0.0-3.0); Arterial Fraction of Oxyhgb 93.5 % (93.0-99.0); Arterial HCO3 39.7 mmol/L (22.0-26.0); Arterial MetHb 0.3 % (0.0-1.5); Arterial pCO2 48.3 mmhg (35-45); MODE VAPOTHERM; Site Left Radial
[2018-11-17] MEDS: ALBUTEROL/IPRATROPIUM (NEB) 3 ML AMP HHN ×3 (09:00→20:48)
[2018-11-17] MEDS: METHYLPREDNISOLONE 40 MG INJ IV (09:29)
[2018-11-17] MEDS: POTASSIUM CHLORIDE 20 MEQ POWDER FOR ORAL SOLN PO (09:29)
[2018-11-17] MEDS: POTASSIUM CHLORIDE (SR) 20 MEQ TAB PO ×2 (09:29→20:06)
[2018-11-17] MEDS: FAMOTIDINE 20 MG TAB PO (09:30)
[2018-11-17] MEDS: APIXABAN 5 MG TABLET PO ×2 (09:30→20:06)
[2018-11-17] MEDS: METOPROLOL 100 MG TAB PO ×2 (09:30→20:06)
[2018-11-17 12:14] LABS: BURR CELLS 1+ (0-0); LYMPHOCYTES #M 1.2 10^3/ul (0.8-2.9); LYMPHOCYTES % (M) 11 % (15-51); MONOCYTE #M 0.2 10^3/ul (0.3-0.9); MONOCYTES % (M) 2 % (0-11); PLATELET ESTIMATE NORMAL; POIKILOCYTOSIS 1+ (0-0); POLYCHROMASIA 1+ (0-0); SEGMENTED NEUTROPHILS (M) % 87 % (39-77)
[2018-11-17] MEDS: DIGOXIN 0.125 MG TAB PO (13:25)
[2018-11-17 15:03] LABS: POTASSIUM 3.8 mmol/L (3.5-5.1)
[2018-11-17] MEDS: FUROSEMIDE 20 MG INJ IV (18:06)
[2018-11-17] MEDS: ATORVASTATIN 20 MG TAB PO (20:06)
[2018-11-18] MEDS: ACCU-CHEK XX ×23 (01:12→23:00)
[2018-11-18 05:54] LABS: WHITE BLOOD COUNT 12.7 10^3/ul (4.8-10.8)
[2018-11-18 05:54] LABS: HEMATOCRIT 36.2 % (37.0-47.0); MEAN CORPUSCULAR HEMOGLOBIN 30.3 pg (29.0-33.0); MEAN CORPUSCULAR HGB CONC 33.1 g/dl (32.0-37.0); MEAN CORPUSCULAR VOLUME 91.4 fl (82.0-101.0); MEAN PLATELET VOLUME 10.6 fl (7.4-10.4); PLATELET COUNT 264 10^3/UL (140-415); RED BLOOD COUNT 3.96 10^6/ul (4.20-5.40); RED CELL DISTRIBUTION WIDTH 13.7 % (11.5-14.5)
[2018-11-18 06:02] LABS: ADD MAN DIFF? YES; POSITIVE DIFF @See below
[2018-11-18] MEDS: FUROSEMIDE 20 MG INJ IV (06:11)
[2018-11-18 06:26] LABS: ANION GAP 2 (5-13); BLOOD UREA NITROGEN 30 mg/dl (7-20); CALCIUM 8.7 mg/dl (8.4-10.2); CARBON DIOXIDE 39 mmol/L (21-31); CHLORIDE 98 mmol/L (97-110); GLUCOSE 79 mg/dl (70-220); MAGNESIUM 2.3 mg/dl (1.7-2.5); PHOSPHORUS 3.7 mg/dl (2.5-4.9); POTASSIUM 3.6 mmol/L (3.5-5.1); SODIUM 139 mmol/L (135-144)
[2018-11-18 06:27] LABS: DIGOXIN 0.7 ng/ml (1.0-2.0)
[2018-11-18 07:23] LABS: BAND NEUTROPHILS #M 0.2 10^3/ul (0.0-0.6); BAND NEUTROPHILS % (M) 2 % (0-4); LYMPHOCYTES #M 1.6 10^3/ul (0.8-2.9); LYMPHOCYTES % (M) 13 % (15-51); MONOCYTE #M 1.7 10^3/ul (0.3-0.9); MONOCYTES % (M) 14 % (0-11); MYELOCYTES #M 0.1 10^3/ul (0.0-0.0); MYELOCYTES % (M) 1 % (0-0); PLATELET ESTIMATE NORMAL; POIKILOCYTOSIS 1+ (0-0); REACTIVE LYMPHOCYTES #M 0.6 10^3/ul (0.0-0.0); REACTIVE LYMPHOCYTES% (M) 5 % (0-0); SEG NEUT #M 8.3 10^3/ul (1.6-7.5); SEGMENTED NEUTROPHILS (M) % 65 % (39-77); SMUDGE%M 5 % (0-0)
[2018-11-18] MEDS: POTASSIUM CHLORIDE (SR) 20 MEQ TAB PO ×2 (08:10→20:22)
[2018-11-18] MEDS: METOPROLOL 100 MG TAB PO ×2 (08:10→20:22)
[2018-11-18] MEDS: FAMOTIDINE 20 MG TAB PO (08:10)
[2018-11-18] MEDS: APIXABAN 5 MG TABLET PO ×2 (08:11→20:21)
[2018-11-18] MEDS: METHYLPREDNISOLONE 40 MG INJ IV (08:11)
[2018-11-18] MEDS: ALBUTEROL/IPRATROPIUM (NEB) 3 ML AMP HHN (08:44)
[2018-11-18] MEDS ORDERED: ALBUTEROL/IPRATROPIUM (NEB) 3 ML AMP HHN (12:00)
[2018-11-18] MEDS: DIGOXIN 0.125 MG TAB PO (13:21)
[2018-11-18] MEDS: INSULIN HUMAN REGULAR 100 UNIT in SOD CHLORIDE 0.9% 99 ML IV (17:48)
[2018-11-18] MEDS: ATORVASTATIN 20 MG TAB PO (20:21)
[2018-11-19] MEDS: ACCU-CHEK XX ×12 (00:40→19:18)
[2018-11-19] MEDS: DIPHENHYDRAMINE 50 MG CAP PO (03:46)
[2018-11-19 05:14] LABS: ADD MAN DIFF? NO
[2018-11-19 05:15] LABS: WHITE BLOOD COUNT 15.2 10^3/ul (4.8-10.8)
[2018-11-19 05:15] LABS: BASOPHIL # 0.1 10^3/ul (0.0-0.1); BASOPHILS % 0.3 % (0.0-2.0); EOSINOPHILS % 0.3 % (0.0-7.0); HEMATOCRIT 37.4 % (37.0-47.0); HEMOGLOBIN 12.2 g/dl (12.0-16.0); LYMPHOCYTES # 1.7 10^3/ul (0.8-2.9); LYMPHOCYTES % 11.5 % (15.0-51.0); MEAN CORPUSCULAR HGB CONC 32.6 g/dl (32.0-37.0); MEAN CORPUSCULAR VOLUME 91.9 fl (82.0-101.0); MEAN PLATELET VOLUME 10.6 fl (7.4-10.4); MONOCYTE # 1.1 10^3/ul (0.3-0.9); MONOCYTES % 7.3 % (0.0-11.0); NEUTROPHIL # 11.7 10^3/ul (1.6-7.5); NEUTROPHILS % 77.4 % (39.0-77.0); PLATELET COUNT 284 10^3/UL (140-415); RED BLOOD COUNT 4.07 10^6/ul (4.20-5.40); RED CELL DISTRIBUTION WIDTH 13.9 % (11.5-14.5)
[2018-11-19 05:46] LABS: ALANINE AMINOTRANSFERASE 56 IU/L (13-69); ALBUMIN 2.5 g/dl (3.3-4.9); ALBUMIN/GLOBULIN RATIO 0.86; ALKALINE PHOSPHATASE 92 IU/L (42-121); ANION GAP 3 (5-13); ASPARTATE AMINO TRANSFERASE 36 IU/L (15-46); BILIRUBIN,INDIRECT 0.6 mg/dl (0-1.1); BILIRUBIN,TOTAL 0.6 mg/dl (0.2-1.3); BLOOD UREA NITROGEN 29 mg/dl (7-20); CALCIUM 8.7 mg/dl (8.4-10.2); CARBON DIOXIDE 35 mmol/L (21-31); CHLORIDE 99 mmol/L (97-110); CREATININE 0.67 mg/dl (0.44-1.00); GLUCOSE 111 mg/dl (70-220); POTASSIUM 4.4 mmol/L (3.5-5.1); SODIUM 137 mmol/L (135-144); TOTAL PROTEIN 5.4 g/dl (6.1-8.1)
[2018-11-19] MEDS: POTASSIUM CHLORIDE (SR) 20 MEQ TAB PO ×2 (08:12→21:30)
[2018-11-19] MEDS: FAMOTIDINE 20 MG TAB PO (08:12)
[2018-11-19] MEDS: METOPROLOL 100 MG TAB PO ×2 (08:12→21:31)
[2018-11-19] MEDS: APIXABAN 5 MG TABLET PO ×2 (08:12→21:30)
[2018-11-19] MEDS: FUROSEMIDE 40 MG TAB PO (08:12)
[2018-11-19] MEDS: INSULIN ASPART [NOVOLOG] 3 ML PEN SC ×3 (12:02→21:00)
[2018-11-19] MEDS: DIGOXIN 0.125 MG TAB PO (12:03)
[2018-11-19] MEDS: INSULIN GLARGINE [LANTus] (100 UNITS/ML) SYG SC (19:17)
[2018-11-19] MEDS: ATORVASTATIN 20 MG TAB PO (21:30)
[2018-11-19] MEDS ORDERED: INSULIN GLARGINE [LANTus] (100 UNITS/ML) SYG SC (23:00)
[2018-11-20] MEDS: ACCU-CHEK XX ×6 (04:00→20:00)
[2018-11-20 05:52] LABS: ADD MAN DIFF? NO
[2018-11-20 06:03] LABS: BASOPHIL # 0.1 10^3/ul (0.0-0.1); BASOPHILS % 0.3 % (0.0-2.0); EOSINOPHILS # 0.1 10^3/ul (0.0-0.5); EOSINOPHILS % 0.8 % (0.0-7.0); HEMATOCRIT 40.2 % (37.0-47.0); HEMOGLOBIN 13.1 g/dl (12.0-16.0); LYMPHOCYTES % 12.3 % (15.0-51.0); MEAN CORPUSCULAR HEMOGLOBIN 29.7 pg (29.0-33.0); MEAN CORPUSCULAR HGB CONC 32.6 g/dl (32.0-37.0); MEAN CORPUSCULAR VOLUME 91.2 fl (82.0-101.0); MEAN PLATELET VOLUME 10.4 fl (7.4-10.4); MONOCYTE # 1.3 10^3/ul (0.3-0.9); MONOCYTES % 8.1 % (0.0-11.0); NEUTROPHIL # 12.3 10^3/ul (1.6-7.5); NEUTROPHILS % 74.4 % (39.0-77.0); PLATELET COUNT 310 10^3/UL (140-415); RED BLOOD COUNT 4.41 10^6/ul (4.20-5.40)
[2018-11-20 06:03] LABS: WHITE BLOOD COUNT 16.5 10^3/ul (4.8-10.8)
[2018-11-20 06:30] LABS: ALANINE AMINOTRANSFERASE 57 IU/L (13-69); ALBUMIN 3.1 g/dl (3.3-4.9); ALBUMIN/GLOBULIN RATIO 0.91; ALKALINE PHOSPHATASE 93 IU/L (42-121); ANION GAP 2 (5-13); ASPARTATE AMINO TRANSFERASE 34 IU/L (15-46); BILIRUBIN,INDIRECT 0.7 mg/dl (0-1.1); BILIRUBIN,TOTAL 0.7 mg/dl (0.2-1.3); BLOOD UREA NITROGEN 21 mg/dl (7-20); CALCIUM 8.8 mg/dl (8.4-10.2); CARBON DIOXIDE 31 mmol/L (21-31); CHLORIDE 104 mmol/L (97-110); CREATININE 0.65 mg/dl (0.44-1.00); GLUCOSE 80 mg/dl (70-220); POTASSIUM 4.4 mmol/L (3.5-5.1); SODIUM 137 mmol/L (135-144); TOTAL PROTEIN 6.5 g/dl (6.1-8.1)
[2018-11-20] MEDS: INSULIN ASPART [NOVOLOG] 3 ML PEN SC ×4 (08:00→21:42)
[2018-11-20] MEDS: POTASSIUM CHLORIDE (SR) 20 MEQ TAB PO ×2 (08:04→21:21)
[2018-11-20] MEDS: APIXABAN 5 MG TABLET PO ×2 (08:04→21:21)
[2018-11-20] MEDS: METOPROLOL 100 MG TAB PO ×2 (08:04→21:22)
[2018-11-20] MEDS: FAMOTIDINE 20 MG TAB PO (08:05)
[2018-11-20] MEDS: FUROSEMIDE 40 MG TAB PO (08:17)
[2018-11-20] MEDS ORDERED: FUROSEMIDE 40 MG INJ IV (09:00)
[2018-11-20] MEDS: DIGOXIN 0.125 MG TAB PO (13:41)
[2018-11-20 16:34] LABS: ADD UMIC YES; UR ASCORBIC ACID NEGATIVE (NEGATIVE); UR BACTERIA FEW /HPF (NONE SEEN); UR BILIRUBIN (Dip) NEGATIVE (NEGATIVE); UR BLOOD (Dip) 3+ mg/dL (NEGATIVE); UR BUDDING YEAST MANY /HPF (NONE SEEN); UR CLARITY CLOUDY (CLEAR); UR COLOR YELLOW (YELLOW); UR GLUCOSE (Dip) 3+ mg/dL (NEGATIVE); UR KETONES (Dip) NEGATIVE (NEGATIVE); UR LEUKOCYTE ESTERASE (Dip) NEGATIVE Leu/ul (NEGATIVE); UR MUCUS FEW /HPF (NONE SEEN); UR NITRITE (Dip) NEGATIVE (NEGATIVE); UR RBC 137 /HPF (0-5); UR SPECIFIC GRAVITY (Dip) 1.014 (1.003-1.030); UR SQUAMOUS EPITHELIAL CELL FEW /HPF (FEW); UR TOTAL PROTEIN (Dip) NEGATIVE (NEGATIVE); UR UROBILINOGEN (Dip) NEGATIVE (NEGATIVE); UR WBC 6 /HPF (0-5)
[2018-11-20] MEDS: ALBUMIN HUMAN 25% 100 ML IV (17:34)
[2018-11-20] MEDS: ATORVASTATIN 20 MG TAB PO (21:21)
[2018-11-20] MEDS: INSULIN GLARGINE [LANTus] (100 UNITS/ML) SYG SC (21:42)
[2018-11-21] MEDS: ALBUMIN HUMAN 25% 100 ML IV ×2 (01:30→09:26)
[2018-11-21] MEDS: ACCU-CHEK XX ×3 (02:00→08:00)
[2018-11-21 06:14] LABS: ADD MAN DIFF? NO
[2018-11-21 06:22] LABS: BASOPHILS % 0.2 % (0.0-2.0); EOSINOPHILS # 0.2 10^3/ul (0.0-0.5); EOSINOPHILS % 1.3 % (0.0-7.0); HEMATOCRIT 35.5 % (37.0-47.0); HEMOGLOBIN 11.5 g/dl (12.0-16.0); LYMPHOCYTES # 1.8 10^3/ul (0.8-2.9); LYMPHOCYTES % 13.9 % (15.0-51.0); MEAN CORPUSCULAR HEMOGLOBIN 29.4 pg (29.0-33.0); MEAN CORPUSCULAR HGB CONC 32.4 g/dl (32.0-37.0); MEAN CORPUSCULAR VOLUME 90.8 fl (82.0-101.0); MEAN PLATELET VOLUME 10.3 fl (7.4-10.4); MONOCYTE # 1.1 10^3/ul (0.3-0.9); MONOCYTES % 8.6 % (0.0-11.0); NEUTROPHIL # 9.4 10^3/ul (1.6-7.5); NEUTROPHILS % 72.2 % (39.0-77.0); PLATELET COUNT 270 10^3/UL (140-415); RED BLOOD COUNT 3.91 10^6/ul (4.20-5.40); RED CELL DISTRIBUTION WIDTH 14.4 % (11.5-14.5)
[2018-11-21 06:22] LABS: WHITE BLOOD COUNT 13.1 10^3/ul (4.8-10.8)
[2018-11-21 06:43] LABS: ALANINE AMINOTRANSFERASE 35 IU/L (13-69); ALBUMIN 3.7 g/dl (3.3-4.9); ALBUMIN/GLOBULIN RATIO 1.23; ALKALINE PHOSPHATASE 69 IU/L (42-121); ANION GAP 4 (5-13); ASPARTATE AMINO TRANSFERASE 25 IU/L (15-46); BILIRUBIN,INDIRECT 0.8 mg/dl (0-1.1); BILIRUBIN,TOTAL 0.8 mg/dl (0.2-1.3); BLOOD UREA NITROGEN 19 mg/dl (7-20); CALCIUM 9.3 mg/dl (8.4-10.2); CARBON DIOXIDE 30 mmol/L (21-31); CHLORIDE 104 mmol/L (97-110); CREATININE 0.77 mg/dl (0.44-1.00); GLUCOSE 78 mg/dl (70-220); MAGNESIUM 2.1 mg/dl (1.7-2.5); POTASSIUM 4.5 mmol/L (3.5-5.1); SODIUM 138 mmol/L (135-144); TOTAL PROTEIN 6.7 g/dl (6.1-8.1)
[2018-11-21] MEDS: INSULIN ASPART [NOVOLOG] 3 ML PEN SC ×2 (07:40→12:11)
[2018-11-21] MEDS: POTASSIUM CHLORIDE (SR) 20 MEQ TAB PO (09:23)
[2018-11-21] MEDS: FAMOTIDINE 20 MG TAB PO (09:23)
[2018-11-21] MEDS: APIXABAN 5 MG TABLET PO (09:24)
[2018-11-21] MEDS: FUROSEMIDE 40 MG TAB PO (09:25)
[2018-11-21] MEDS: METOPROLOL 100 MG TAB PO (09:25)
== END 2018-11-21 12:17 | disposition home or self-care (01) | DRG 871 ==
LOC: 6WM 11-19 20:22 → E/R 21:37 → ICU 22:09
PROC: 02H633Z Insertion of Infusion Device into Right Atrium, Percutaneous Approach (ICD-10-PCS; principal; 2018-11-11)
DX: A41.9 Sepsis, unspecified organism (principal); G93.41 Metabolic encephalopathy; J18.9 Pneumonia, unspecified organism; J96.01 Acute respiratory failure with hypoxia; I50.33 Acute on chronic diastolic (congestive) heart failure; E87.2 Acidosis; E87.1 Hypo-osmolality and hyponatremia; I48.92 Unspecified atrial flutter; F05 Delirium due to known physiological condition; D50.9 Iron deficiency anemia, unspecified; E78.5 Hyperlipidemia, unspecified; E87.6 Hypokalemia; E11.65 Type 2 diabetes mellitus with hyperglycemia; F03.90 Unspecified dementia, unspecified severity, without behavioral disturbance, psychotic disturbance, mood disturbance, and anxiety; I11.0 Hypertensive heart disease with heart failure; I48.0 Paroxysmal atrial fibrillation; I65.21 Occlusion and stenosis of right carotid artery; I25.10 Atherosclerotic heart disease of native coronary artery without angina pectoris; I83.93 Asymptomatic varicose veins of bilateral lower extremities; K21.9 Gastro-esophageal reflux disease without esophagitis; K29.70 Gastritis, unspecified, without bleeding; M81.0 Age-related osteoporosis without current pathological fracture; R32 Unspecified urinary incontinence; Z95.5 Presence of coronary angioplasty implant and graft; Z79.4 Long term (current) use of insulin; Z79.82 Long term (current) use of aspirin; Z79.01 Long term (current) use of anticoagulants; Z79.83 Long term (current) use of bisphosphonates
CPT/HCPCS: 36415; 36573; 36600; 71045; 71250; 80048; 80053; 80162; 80202; 81001; 82728; 82803; 82962; 83540; 83605; 83735; 83880; 84100; 84132; 84145; 84484; 85025; 85610; 85730; 87040-91; 87081; 87086; 93005; 93306; 94640; 94660; 94664; 96374; 96375; 97116; 97163; 97530; 99285-25